=== PATIENT | female | born 1995 | race Caucasian/White ===

== ENCOUNTER 2022-12-29 11:10 | Emergency (ER) | payer OTHER ==
[~2022-12-29] VITALS: Ht 167.6 cm; Wt 50.0 kg
[~2022-12-29 11:10] MED LIST: ALBU18HF2 IH; GUAI473S11 PO; PRED20TA PO
[2022-12-29 12:41] LABS: CLARITY,URINE CLEAR (Clear); COLOR,URINE YELLOW (Yellow); GLUCOSE, URINE NEGATIVE (Neg); KETONES,URINE NEGATIVE (Neg); LEUKOCYTE ESTERASE ,URINE NEGATIVE (Neg); NITRITES, URINE NEGATIVE (Neg); OCCULT BLOOD,URINE TRACE-INTACT (Neg); PH,URINE 5.5 (4.8-8.0); PROTEIN,URINE NEGATIVE (Neg); UROBILINOGEN,URINE 0.2 E.U/dL (0.2-1.0)
[2022-12-29 12:44] LABS: UA COLLECTION TYPE CLN CATCH MIDSTREAM
[2022-12-29 12:46] LABS: URINE HCG POSITIVE (NEG)
[2022-12-29 12:48] LABS: BACTERIA,URINE FEW /HPF (Neg); MUCUS STRANDS FEW /LPF (Neg); RBC,URINE 0-2 /HPF (0-2); SQUAMOUS EPITHELIAL CELL,UR MANY /LPF (FEW); WBC,URINE 0-4 /HPF (0-4)
[2022-12-29 13:08] LABS: BASOPHILS % (AUTO) 0.3 % (0-1); EOSINOPHILS # (AUTO) 0.2 X10'3 (0-0.9); EOSINOPHILS % (AUTO) 1.3 % (0-6); HEMATOCRIT 44.6 % (35.0-45.0); LYMPHOCYTES % (AUTO) 15.2 % (21-51); MEAN CORPUSCULAR HEMOGLOBIN 30.8 PG (27.0-31.0); MEAN CORPUSCULAR HGB CONC 33.6 g/dL (33.0-36.5); MEAN CORPUSCULAR VOLUME 91.8 FL (78-98); MONOCYTES # (AUTO) 0.7 X10'3 (0-0.9); MONOCYTES % (AUTO) 5.7 % (2-12); NEUTROPHILS # (AUTO) 10.2 X10'3 (1.8-7.7); NEUTROPHILS % (AUTO) 77.5 % (42-75); PLATELET COUNT 268 X10'3 (140-440); RED BLOOD COUNT 4.86 X10'6 (4.20-5.60); RED CELL DISTRIBUTION WIDTH 13.2 % (11.5-14.5); WHITE BLOOD COUNT 13.1 X10'3 (4.5-11.0)
[2022-12-29 13:20] LABS: ALANINE AMINOTRANSFERASE 31 U/L (12-78); ALBUMIN 3.7 G/DL (3.4-5.0); ALBUMIN/GLOBULIN RATIO 0.8 (1.1-1.5); ALKALINE PHOSPHATASE 66 IU/L (46-116); ANION GAP 8 (8-16); ASPARTATE AMINO TRANSFERASE 29 U/L (10-37); BILIRUBIN,TOTAL 0.2 MG/DL (0.1-1.0); BLOOD UREA NITROGEN 9 MG/DL (7-18); BUN/CREATININE RATIO 17.3 (10.0-20.0); CALCIUM 8.7 MG/DL (8.5-10.1); CHLORIDE 102 MMOL/L (99-107); CREATININE 0.52 MG/DL (0.40-0.90); GLUCOSE 92 MG/DL (70-104); POTASSIUM 3.9 MMOL/L (3.5-5.1); SODIUM 136 MMOL/L (135-145); TOTAL CARBON DIOXIDE 25.9 MMOL/L (24-32); TOTAL PROTEIN 8.1 G/DL (6.4-8.2); eGFR > 90 ML/MIN
--- NOTE | 2022-12-29 13:24 | NUR ---
I have reviewed and agree with all interventions, assessments performed and documented by HOLLEY HAHN.
[2022-12-29 14:11] VITALS: BP 113/69
== END 2022-12-29 14:13 | disposition home or self-care (01) ==
LOC: ER 11:10
DX: O26.891 Other specified pregnancy related conditions, first trimester (principal); R10.13 Epigastric pain; O21.9 Vomiting of pregnancy, unspecified; F12.90 Cannabis use, unspecified, uncomplicated; Z72.89 Other problems related to lifestyle; Z79.899 Other long term (current) drug therapy; Z3A.08 8 weeks gestation of pregnancy
CPT/HCPCS: 36415; 76801; 80053; 81001; 81025; 84702; 85025; 85610; 86885; 86900; 86901; 99284

== ENCOUNTER 2023-09-03 10:08 | Emergency (ER) | payer SELFPAY ==
[~2023-09-03] VITALS: Ht 167.6 cm; Wt 51.3 kg
[2023-09-03 10:35] LABS: BILIRUBIN,URINE NEGATIVE (Neg); CLARITY,URINE CLOUDY (Clear); COLOR,URINE YELLOW (Yellow); GLUCOSE, URINE NEGATIVE (Neg); KETONES,URINE NEGATIVE (Neg); LEUKOCYTE ESTERASE ,URINE NEGATIVE (Neg); NITRITES, URINE NEGATIVE (Neg); OCCULT BLOOD,URINE MODERATE (Neg); PH,URINE 5.5 (4.8-8.0); PROTEIN,URINE NEGATIVE (Neg); UROBILINOGEN,URINE 0.2 E.U/dL (0.2-1.0)
[2023-09-03 10:37] LABS: URINE HCG NEGATIVE (NEG)
[2023-09-03 10:39] LABS: UA COLLECTION TYPE CLN CATCH MIDSTREAM
[2023-09-03 10:44] LABS: BACTERIA,URINE 3+ /HPF (Neg); MUCUS STRANDS FEW /LPF (Neg); SQUAMOUS EPITHELIAL CELL,UR MANY /LPF (FEW)
[2023-09-03] MEDS ORDERED: iohexol 300mg/ml 100ml inj. ONE (10:51)
[2023-09-03 11:00] LABS: BASOPHILS % (AUTO) 0.3 % (0-1); EOSINOPHILS # (AUTO) 0.3 X10'3 (0-0.9); HEMATOCRIT 46.9 % (35.0-45.0); HEMOGLOBIN 15.5 g/dl (12.0-16.0); LYMPHOCYTES # (AUTO) 0.7 X10'3 (1.1-4.8); LYMPHOCYTES % (AUTO) 4.1 % (21-51); MEAN CORPUSCULAR HEMOGLOBIN 29.6 PG (27.0-31.0); MEAN CORPUSCULAR HGB CONC 33.2 g/dL (33.0-36.5); MEAN CORPUSCULAR VOLUME 89.1 FL (78-98); MEAN PLATELET VOLUME 9.1 FL (7.4-10.4); MONOCYTES # (AUTO) 0.5 X10'3 (0-0.9); MONOCYTES % (AUTO) 3.1 % (2-12); NEUTROPHILS # (AUTO) 15.2 X10'3 (1.8-7.7); NEUTROPHILS % (AUTO) 90.5 % (42-75); PLATELET COUNT 290 X10'3 (140-440); RED BLOOD COUNT 5.26 X10'6 (4.20-5.60); RED CELL DISTRIBUTION WIDTH 14.9 % (11.5-14.5); WHITE BLOOD COUNT 16.8 X10'3 (4.5-11.0)
[2023-09-03 11:11] LABS: ALANINE AMINOTRANSFERASE 23 U/L (12-78); ALBUMIN 3.9 G/DL (3.4-5.0); ALBUMIN/GLOBULIN RATIO 0.9 (1.1-1.5); ALKALINE PHOSPHATASE 125 IU/L (46-116); ANION GAP 8 (8-16); ASPARTATE AMINO TRANSFERASE 27 U/L (10-37); BILIRUBIN,TOTAL 0.5 MG/DL (0.1-1.0); BLOOD UREA NITROGEN 15 MG/DL (7-18); BUN/CREATININE RATIO 15.6 (10.0-20.0); CALCIUM 8.8 MG/DL (8.5-10.1); CHLORIDE 105 MMOL/L (99-107); CREATININE 0.96 MG/DL (0.40-0.90); GLUCOSE 112 MG/DL (70-104); POTASSIUM 4.1 MMOL/L (3.5-5.1); SODIUM 140 MMOL/L (135-145); TOTAL CARBON DIOXIDE 26.9 MMOL/L (24-32); TOTAL PROTEIN 8.4 G/DL (6.4-8.2); eCRCL 69 ML/MIN; eGFR 68 ML/MIN
[2023-09-03 11:14] LABS: LIPASE 38 U/L (16-77)
[2023-09-03] MEDS ORDERED: ondansetron/PF 4mg/2ml inj IV ONE (11:40)
[2023-09-03] MEDS ORDERED: morphine 4 MG/ML inj SYRINge IV ONE (11:40)
--- NOTE | 2023-09-03 11:41 | NUR ---
pt says she is in extreme pain. very jumpy. vital signs stable
[2023-09-03 11:44] LABS: TOTAL CELLS COUNTED 100
[2023-09-03 11:45] LABS: PLATELET ESTIMATE NORMAL
[2023-09-03 11:53] VITALS: TEMP 99.7
--- NOTE | 2023-09-03 12:15 | NUR ---
morphine and zofran given as prescribed. pt is resting comfortably and waiting for CT. vital signs stable.
[2023-09-03] MEDS ORDERED: normal saline 1000ml 1,000 ML IV ONE (14:30)
--- NOTE | 2023-09-03 14:33 | NUR ---
ultrasound asked to have pt bladder full. spoke with PA, order 1L NS bolus with some oral fluids. pt resting and fluids running. pt tolerating oral fluids well.
[2023-09-03] MEDS ORDERED: ONDA4TAB12 PO (16:42)
[2023-09-03] MEDS ORDERED: NAPR-56 PO (16:42)
[2023-09-03 17:39] VITALS: BP 110/70; PULSE 90; RESP 15; O2SAT 98
== END 2023-09-03 17:40 | disposition home or self-care (01) ==
LOC: ER 10:08
DX: R11.2 Nausea with vomiting, unspecified (principal); R10.9 Unspecified abdominal pain; F12.90 Cannabis use, unspecified, uncomplicated; Z72.89 Other problems related to lifestyle; Z79.899 Other long term (current) drug therapy
CPT/HCPCS: 36415; 74177; 76856; 80053; 81001; 81025; 83690; 84484; 85007; 85025; 93976; 96374; 96375; 99285; J2270; J2405; J3490; J7030; Q9967

== ENCOUNTER 2024-07-31 20:51 | Emergency (ER) | payer OTHER ==
[~2024-07-31] VITALS: Ht 167.6 cm; Wt 44.0 kg
[~2024-07-31 20:51] MED LIST changes: +ONDA-243 PO
[2024-07-31 21:54] VITALS: BP 111/74; PULSE 111; RESP 22; TEMP 98.9; O2SAT 99
[2024-07-31 21:55] LABS: BILIRUBIN,URINE SMALL (Neg); CLARITY,URINE SLIGHTLY CLOUDY (Clear); COLOR,URINE YELLOW (Yellow); GLUCOSE, URINE NEGATIVE (Neg); KETONES,URINE TRACE mg/dl (Neg); LEUKOCYTE ESTERASE ,URINE NEGATIVE (Neg); OCCULT BLOOD,URINE NEGATIVE (Neg); PROTEIN,URINE >=300 mg/dl (Neg); URINE HCG NEGATIVE (NEG)
[2024-07-31 22:02] LABS: UA COLLECTION TYPE CLN CATCH MIDSTREAM
[2024-07-31 22:03] LABS: NITRITES, URINE NEGATIVE (Neg)
[2024-07-31 22:06] LABS: BACTERIA,URINE 2+ /HPF (Neg); RENAL CELLS, URINE FEW /HPF; SQUAMOUS EPITHELIAL CELL,UR FEW /LPF (FEW); TRANSITIONAL EPI CELLS,URINE FEW /HPF; WBC CLUMPS,URINE FEW /HPF (NEGATIVE); WBC,URINE 20-30 /HPF (0-4)
[2024-07-31 22:07] LABS: FINE GRANULAR CAST 0-3 /LPF (NEGATIVE)
== END 2024-07-31 23:14 | disposition left against medical advice (07) ==
LOC: ER 20:52
DX: R10.9 Unspecified abdominal pain (principal); Z53.21 Procedure and treatment not carried out due to patient leaving prior to being seen by health care provider
CPT/HCPCS: 81001; 81025; 87077; 87088; 87186

== ENCOUNTER 2025-09-19 17:43 | Emergency (ER) | payer SELFPAY ==
[~2025-09-19] VITALS: Ht 165.1 cm; Wt 47.1 kg
[2025-09-19 18:00] VITALS: TEMP 98.7
[2025-09-19 18:24] LABS: LEUKOCYTE ESTERASE ,URINE NEGATIVE (Neg); NITRITES, URINE NEGATIVE (Neg); OCCULT BLOOD,URINE NEGATIVE (Neg)
[2025-09-19 18:25] LABS: URINE HCG NEGATIVE (NEG)
[2025-09-19 18:30] LABS: UA COLLECTION TYPE CLN CATCH MIDSTREAM
[2025-09-19 18:32] LABS: SQUAMOUS EPITHELIAL CELL,UR MANY /LPF (FEW)
[2025-09-19 18:33] LABS: MEAN PLATELET VOLUME 8.3 FL (7.4-10.4); RED CELL DISTRIBUTION WIDTH 13.1 % (11.5-14.5)
[2025-09-19 18:42] LABS: CREATININE 0.80 MG/DL (0.40-0.90); TOTAL CARBON DIOXIDE 29.8 MMOL/L (24-32); eCRCL 75 ML/MIN; eGFR 83 ML/MIN
[2025-09-19] MEDS: diazepam inj 5 MG/ML inj. IV ONE ×2 (20:45→21:55)
--- NOTE | 2025-09-19 20:52 | Physician Documentation ---
History of Present Illness Chief Complaint: Abdominal Pain Stated Complaint: ABDOMINAL PAIN Time Seen by MD: 20:35 Primary Medical Doctor: DR. Thompson/farheen HPI 30-year-old female presents to the ED with a complaint of 3-4 days of nausea vomiting and abdominal pain. States that hot showers and improve her symptoms. Reports using cannabis habitually. States she has never had symptoms like this before. Denies any fevers he has any diarrhea. Denies any urinary symptoms Patient states he has been having regular bowel movement Day of Onset: Sep 19, 2025 Medication Reconciliation Allergies: Coded Allergies: No Known Allergies (Unverified , 09/19/25) Scheduled Albuterol Sulfate (Ventolin Hfa), 2 PUFFS IH 5XD Guaifenesin/Codeine Phos AC Syrup* (Cheratussin AC Syrup*), 10 ML PO Q6H Prednisone* (Prednisone*), 60 MG PO DAILY Scheduled PRN ONDANSETRON ODT 4mg tablet (Ondansetron Odt), 1 TAB PO Q6H PRN PRN for nausea/vomiting Past Medical History Past Medical History: Bronchitis Past Surgical History: no surgical history Alcohol Use: Occasionally Drug Use: marijuana Review of Systems All Other Systems at this time: Reviewed and Negative ROS As stated above in the HPI, otherwise all systems are reviewed and negative. Physical Exam Vital Signs: Temperature: 98.7, Source: Temporal, Heart Rate: 90, Respiratory Rate: 16, BP: 120/87, Pulse Oximetry: 100, Weight: 47.100 Oxygen Flow Rate: 0 Physical Exam General: Alert, no apparent distress. HEENT: PERRL, EOMI, no injection, moist mucous membranes. Neck: Full range of motion. Respiratory: Lungs clear, no respiratory distress. Chest: No accessory muscle use. Cardiovascular: Regular rate and rhythm, no murmurs. Gastrointestinal: Tender midepigastric Extremities: Normal range of motion, no deformity. Neurologic: Oriented x4. Psychiatric: Normal mood and affect. Skin: Normal color, warm and dry. No edema, no ecchymosis. Progress Results/Orders Results/Orders Completed Orders - ISAK CLEMENTE [employer] EDUCATOR Normal Saline 1000ml (0.9% Sodium Chlori (09/19/25 20:45) Diazepam Inj (Valium Inj) (09/19/25 20:45) Haloperidol Lact. (Haldol) (09/19/25 20:45) Vital Signs 09/19/25 18:00 Temp 98.7 Pulse 90 Resp 16 B/P (MAP) 120/87 Pulse Ox 100 O2 Flow Rate 0 Laboratory Tests Test 09/19/25 18:03 09/19/25 18:18 Urine Specimen Description Cln catch midstream Urine Color Yellow Urine Clarity Clear Urine pH 7.0 Urine Specific Ward 1.010 Urine Protein Trace Urine Glucose (UA) Negative Urine Ketones Negative Urine Occult Blood Negative Urine Nitrite Negative Urine Bilirubin Negative Urine Urobilinogen 1.0 Urine Leukocyte Esterase Negative Urine RBC 3-10 Urine WBC 10-20 H Urine Squamous Epithelial Cells Many Urine Bacteria 2+ Urine Culture Indicated Rejected for culture Volume Urine Centrifuged 10 ml Urine HCG, Qualitative Negative Urine Comment White Blood Count 10.0 Red Blood Count 4.58 Hemoglobin 14.0 Hematocrit 41.4 Mean Corpuscular Volume 90.5 Mean Corpuscular Hemoglobin 30.7 Mean Corpuscular Hemoglobin Concent 33.9 Red Cell Distribution Width 13.1 Platelet Count 337 Mean Platelet Volume 8.3 Neutrophils (%) (Auto) 60.2 Lymphocytes (%) (Auto) 29.7 Monocytes (%) (Auto) 7.2 Eosinophils (%) (Auto) 2.3 Basophils (%) (Auto) 0.6 Neutrophils # (Auto) 6.0 Lymphocytes # (Auto) 3.0 Monocytes # (Auto) 0.7 Eosinophils # (Auto) 0.2 Basophils # (Auto) 0.1 CBC Comment Sodium Level 141 Potassium Level 4.1 Chloride Level 106 Carbon Dioxide Level 29.8 Anion Gap 5 L Blood Urea Nitrogen 9 Creatinine 0.80 Estimated GFR/1.73 m2 83 BUN/Creatinine Ratio 11.3 Glucose Level 97 Calcium Level 8.5 Total Bilirubin 0.3 Aspartate Amino Transf (AST/SGOT) 24 Alanine Aminotransferase (ALT/SGPT) 20 Alkaline Phosphatase 62 Total Protein 7.7 Albumin 3.6 Globulin 4.1 Albumin/Globulin Ratio 0.9 L Lipase 41 Chemistry Comments Medical Decision Making Additional information obtaine: old records Findings Who presented with a all the clinical indications for cannabinoid hyperemesis syndrome differential treated her with inappropriate cocktail. Her symptoms improved she took some time to discharge as she became somnolent. But her nausea vomiting did cease Differential Dx:Considerations: Constipation, Hepatitis, Urinary tract infection Departure Disposition: HOME / SELF CARE / HOMELESS Impression: Primary Impression: Abdominal pain Additional Impression: Cannabinoid hyperemesis syndrome Discharge Instructions: Cannabinoid Hyperemesis Syndrome Referrals: NO PRIMARY CARE PROVIDER (PCP) Education Educated: Patient Educated regarding: diagnosis Signature Scribe Signature: i Attestation: Scribed for Isak Clemente Rn Stars by Isak Salmeron NP . 09/19/25 22:06 ISAK CLEMENTE NP Sep 19, 2025 20:52
[2025-09-19] MEDS: normal saline 1000ML IV soln IVB ONE (21:09)
[2025-09-19] MEDS: haloperidol lactate 5mg/ml inj IM ONE (21:10)
[2025-09-20 03:36] VITALS: BP 108/73; PULSE 78; RESP 16; O2SAT 100
== END 2025-09-20 03:01 | disposition home or self-care (01) ==
LOC: ER 17:43
DX: R10.9 Unspecified abdominal pain (principal); F12.90 Cannabis use, unspecified, uncomplicated
CPT/HCPCS: 36415; 80053; 81001; 81025; 83690; 85025; 96361; 96372; 96374; 99285; J1630; J3360; J7030; A4615